=== PATIENT | male | born 1965 | race Caucasian/White ===

== ENCOUNTER 2025-01-19 14:14 | Inpatient (IN) | payer OTHER, SELFPAY ==
[2025-01-19] VITALS (12 sets, daily range): BP systolic 97–142; BP diastolic 63–101; BMI 30.5
[2025-01-19 10:14] LABS: Hematocrit 40.5 % (39.0-52.0); Hemoglobin 13.3 g/dL (13.0-18.0); Mean Corp Hgb Conc. 32.8 g/dL (33.0-37.0); Mean Corpuscular Volume 87.5 fL (80.0-94.0); Nucleated Red Blood Cells % 0 % (-); Platelet Count 296 10^3/uL (130-400); Red Cell Dist. Width 15.3 % (11.5-14.5)
[2025-01-19 10:36] LABS: ALT (SGPT) 85 U/L (0-50); AST (SGOT) 37 U/L (17-59); Albumin 3.7 g/dl (3.5-5.0); Alkaline Phosphatase 107 U/L (38-126); Blood Urea Nitrogen 19 mg/dl (9-20); Calcium 9.1 mg/dl (8.4-10.2); Carbon Dioxide 26 mmol/L (22-30); Chloride 103 mmol/L (98-107); Glucose 106 mg/dl (70-99); Potassium 4.5 mmol/L (3.5-5.1); Sodium 134 mmol/L (135-145); Total Protein 7.1 g/dl (6.3-8.2); eGFR > 60.00
[2025-01-19 10:41] LABS: Troponin I 0.037 ng/ml
--- NOTE | 2025-01-19 12:14 | ED.GENMED ---
History of Present Illness
General
Chief Complaint: Breathing Problem
Time Seen by Provider: 01/19/25 10:50
History of Present Illness
History of Present Illness:
59-year-old male without significant past medical history presenting for dyspnea on exertion. Patient reports symptom essentially for the past month, which seem to be worsening. Also reports orthopnea. Notes dyspnea with very short distances of
walking. Denies any prior history of cardiac disease. Does feel like his neck has been bulging. Denies any lower extremity swelling. Denies any associated chest pain. Denies cough or fever. Denies abdominal pain. Denies additional acute
medical complaints
Phy Exam
Physical Exam
Physical Exam:
General: Well-appearing, no clinical signs of dehydration, nontoxic and in no acute distress
HEENT: protecting airway
Neck: appears supple
CV: Tachycardic, regular rhythm
Resp: No accessory muscle use, no increased work of breathing, mild crackles at the bases
Abd: Soft and non-distended, no tenderness to palpation
Extremities: No deformities, no swelling
Neuro: alert, no focal neurologic deficit
: deferred
Rectal: deferred
Psych: Normal affect
Skin: Intact
Scores
Heart Failure Risk
Heart Failure Risk Score: Yes
History of Stroke or TIA: No
History of intubation for respiratory distress: No
Heart rate on ED arrival >/= 110: Yes
SaO2 <90% on arrival on room air: No
HR >/=110 during 3min walk test (or too ill to perform test): Yes
ECG has acute ischemic changes: Yes
Urea >/=12mmol/L (BUN 33.6mg/dL): No
Serum CO2>/=35mmol/L: No
Troponin I or T elevated to MA Level (0.4mg/dL): No
NT-proBNP >/=5,000ng/L (5,000pg/ml): Yes
HF Risk Score: 5
Admission Status: VERY HIGH RISK 39.8% Consider admission to hospital
Sepsis
Sepsis Screening
Sepsis Assessment: Sepsis Ruled Out
Sepsis Screen
Sepsis Screen: Sepsis Ruled Out
Date: 01/19/25
Time: 14:30
Course
Orders/Labs/Results
Orders:
Orders
01/19/25 09:45
Electrocardiogram (*1) Urgent
Reason for Study: Shortness of Breath
EKG- Treatment ONCE
01/19/25 10:05
Complete Blood Count/With Diff Urgent
Comprehensive Metabolic Panel Urgent
Pro-BNP [NT-proBNP] Urgent
Troponin I Urgent
01/19/25 11:39
CR Chest - 2 Views Urgent
Comment:
Reason For Exam: SOB, suspect CHF
01/19/25 12:23
EKG- Treatment ONCE
01/19/25 12:40
Troponin I Urgent
01/19/25 13:00
Electrocardiogram (*1) Urgent
Reason for Study: Shortness of Breath
01/19/25 13:37
Furosemide [Lasix] 40 mg IV NOW STA
01/19/25 14:05
Admit/Transfer Patient As Directed
Co-Sign Provider:
Level of Care: Inpatient admission
Assign to:: Telemetry
Physician / Group: leticia
Diagnosis: CHF
Reason for Telemetry: Acute Heart Failure
Date to Stop Telemetry: 01/22/25
Time to Stop Telemetry: 11:00
Reason for Hospitalization: CHF
Expected length of stay greater than two midnights?: Yes
ELOS- Estimated Length of Stay in days: 3
I certify the patient meets the requirements for IP care: Yes
PRN Pain Medication Management As Directed
May give lesser potent ordered pain med per pt: Yes
preference::
Protocol:: Medication orders for pain may be administered in a
manner that supports deferring to patient preference
when the pt is:
- Requesting an ordered lesser potent pain medication.
Least to most potent pain medications are defined
as: acetaminophen < NSAID < tramadol < opioids
(morphine, oxycodone, hydromorphone).
- Requesting a lesser dose of the same medication IF
ORDERED.
- Requesting a less intrusive route of administration
if both routes are prescribed by the provider (PO <
IV).
01/19/25 14:06
Code Status As Directed
Resuscitation Status: Full Code
01/22/25 11:00
DC Protocol for Telemetry ONCE
Abnormal Lab Results
01/19/25 01/19/25
10:05 12:40
RBC 4.63 L 10^6/uL
(4.70-6.10)
MCHC 32.8 L g/dL
(33.0-37.0)
RDW 15.3 H %
(11.5-14.5)
Absolute Neuts (auto) 7.6 H 10^3/uL
(1.4-6.5)
Neutrophils % 78.9 H %
(42.2-75.2)
Lymphocytes % 12.3 L %
(20.5-51.1)
Sodium 134 L mmol/L
(135-145)
Glucose 106 H mg/dl
(70-99)
Total Bilirubin 2.0 H mg/dl
(0.2-1.3)
ALT 85 H U/L
(0-50)
Troponin I 0.037 H* ng/ml 0.036 H* ng/ml
01/19/25 10:05
01/19/25 10:05
Vital Signs
Initial and Last Documented VS:
Initial Vital Signs
Temp Pulse Resp BP Pulse Ox
97.5 F 111 22 132/99 100
01/19/25 09:43 01/19/25 09:43 01/19/25 09:43 01/19/25 09:43 01/19/25 09:43
Last Documented Vital Signs
Temp Pulse Resp BP Pulse Ox
97.6 F 103 24 131/85 99
01/19/25 10:54 01/19/25 14:15 01/19/25 11:45 01/19/25 14:15 01/19/25 12:19
MDM/Problems Addressed
MDM/Problems Addressed:
59-year-old male without significant past medical history presenting for progressive dyspnea on exertion. Vital signs on arrival significant for tachycardia.
On exam patient is resting comfortably, no acute respiratory distress. However symptoms clinically appear most consistent with congestive heart failure given progressive dyspnea on exertion and orthopnea with JVD. EKG obtained, does show diffuse T
wave inversion, which is changed from prior. No present chest pain with lower suspicion for ACS. Labs obtained prior to my assessment. Mild elevation of troponin, BNP is 10,000. Again clinical concern for CHF. Plan for chest x-ray imaging.
13:30 -chest x-ray shows evidence of pulmonary edema and increased cardiac silhouette. Continued concern for CHF, new onset. Will start Lasix and plan for admission with cardiac consultation
*Pulse Oximetry
SaO2: 99
Oxygen Mode of Delivery: Room air
Patient hypoxic: no
*EKG
Interpreted by ED Provider?: Yes
EKG Intrepretation Date: 01/19/25
EKG Intrepretation Time: 12:17
Interpretation: abnormal
Comparison EKG: changes noted (11/30/17)
Heart Rate: 106
Rate: tachycardiac
Rhythm: sinus
Interval: normal interval
QRS Pattern: left vent hypertrophy
Ischemia: T-wave inversion (laterally)
*Critical Care Note
Total Time (30-74mins, 75-104mins- exclusive of procedures): Not Applicable
ED Attending Note
-
Portions of this chart may have been created with voice recognition software.� Occasional wrong word or��sound alike� substitutions may have occurred due to the inherent limitations of voice recognition software.
Discharge Plan
Departure
Patient Disposition: Admit
Date of Disposition: 01/19/25
Time of Disposition: 13:47
Presentation/result/management discussed w/ accepting MD/DO: Hospitalist
Patient with high blood pressure during this ER visit?: No
Condition: Fair
Discharge Problem:
Dyspnea on exertion, New onset of congestive heart failure
Interventions
Interventions:
*Risk Screen - Suicide Last Done: 01/19/25 09:43
*General Assessment Last Done: 01/19/25 10:54
*Neglect/Abuse Screening Last Done: 01/19/25 10:54
*ED- Fall Risk Assessment Last Done: 01/19/25 10:54
*ED COVID-19 Vaccine History Last Done: 01/19/25 10:54
*ED Influenza Vaccine History Last Done: 01/19/25 10:54
ED- Cardiac Assessment Last Done: 01/19/25 10:54
ED- Pulmonary Assessment Last Done: 01/19/25 10:54
[2025-01-19 13:22] LABS: Troponin I 0.036 ng/ml
--- NOTE | 2025-01-19 13:53 | HPS.HSE ---
Family Physician
-
Family Physician: * NONE
Chief Complaint
-
sob
History of Present Illness
59-year-old male without significant past medical history presenting for dyspnea on exertion for one month, which progressively got worse. patient stated abdominal tightness with exertion. denied chest pain. patient complained of orthopnea. denied
cough,congestion, fever, chills, LIU, dizzy or syncope. denied n,v,d. denied dysuria or hematuria. patient denied LE edema or weight gain.
Concern for CHF. Patient received a dose of diuretics. Admitting for further management
Medical History
Past Medical History
Past Medical History: Reports None
Past Surgical History: Reports Other
Additional Past Surgical History:
Right inguinal hernia surgery, open repair incarcerated umbilical hernia
Social History
Tobacco: Non-smoker
Alcohol: Occasional (Last drink was 4 weeks ago)
Drug: None
Living: With Family
Family History
Family History: Not pertinent
Allergies / Home Medications
Allergies reflects when Allergies were last updated in [employer].
Home Medications with original date entered in [employer]
Allergy/Medication List:
Allergies
Allergy/AdvReac Type Severity Reaction Status Date / Time
Shellfish Allergy Swelling Uncoded 01/19/25 09:45
Home Medications
No Meds [No Current Medications] 01/19/25
Review of Systems
-
Constitutional: Reports No Symptoms
EENT: Reports No Symptoms
Respiratory: Reports Trouble Breathing
Cardiac: Reports No Symptoms
Abdomen/GI: Reports No Symptoms
: Reports No Symptoms
Musculoskeletal: Reports No Symptoms
Skin: Reports No Symptoms
Neurological: Reports No Symptoms
Endocrine: Reports No Symptoms
Hematologic/Lymphatic: Reports No Symptoms
Psych: Reports No Symptoms
Physical Exam
Vital Signs
Vital Signs
Temp Pulse Resp BP Pulse Ox
97.6 F 105 24 131/94 99
01/19/25 10:54 01/19/25 11:45 01/19/25 11:45 01/19/25 11:00 01/19/25 12:19
Physical Exam
General: Well Developed, Well Nourished and No Apparent Distress
HEENT: NormoCephalic, Moist mucous membranes and Atraumatic
Respiratory: Clear
Cardiac: S1/S2 and Regular Rhythm; No Murmur or Rub
GI: Soft, Non Tender, Non Distended and Normal Bowel Sounds; No Organomegaly
Rectal: Deferred by Provider
Musculoskeletal: No Clubbing, No Cyanosis and Edema, Left Lower Extremity
Skin: No Rash
Neuro: AO x 3 and Nonfocal/grossly intact
Psych: Calm
Laboratory Results
-
01/19/25 10:05
01/19/25 10:05
Laboratory Results
Total Bilirubin 2.0 mg/dl (0.2-1.3) H 01/19/25 10:05
AST 37 U/L (17-59) 01/19/25 10:05
ALT 85 U/L (0-50) H 01/19/25 10:05
Alkaline Phosphatase 107 U/L (38-126) 01/19/25 10:05
Troponin I 0.036 ng/ml H* 01/19/25 12:40
Data Reviewed
-
Diagnostic Radiology: Report Reviewed by me
Lab Data: Labs Reviewed by me
Impression/Plan
-
# Dyspneic exertion/orthopnea concern for new onset CHF
- EKG with diffuse T wave inversion
- BNP 10, 000
- Chest x-ray with Mild cardiomegaly with slightly increased pulmonary vascularity suggesting mild CHF.
- IV diuretics continued
- Strict SHANNEN, daily weight, fluid restriction
- Obtain echocardiogram
- Cardiology consulted
# Alcohol abuse
- 6 beers per night, his last drink was 4 weeks ago
# Troponin elevation suspect demand ischemia secondary to CF exacerbation
- Trope 0.036
- Continue to trend Trope
- Patient denies chest pain
# DVT prophylaxis
- Lovenox subcu
# CODE STATUS
- Full code
[2025-01-19] MEDS: LASIX 40 MG IV ×2 (14:15→21:03)
--- NOTE | 2025-01-19 14:27 | W.PN.UPDATE ---
Update Note
Progress Note Update
Patient seen in conjunction with the nurse practitioner. I agree with the findings and physical. I concur with assessment and plan unless otherwise stated.
Briefly, 59-year-old without known past medical history who presents to the emergency department with multiple complaints including shortness of breath. Patient reports that for about 4 weeks has been having dyspnea on exertion with walking up a
flight of stairs or about [address] He also reports orthopnea whereby he wakes up 5 minutes after going to bed with acute shortness of breath. He reports that he does feel abdominal fullness with any degree of activity. He denies having any
chest pain or chest pressure. He has not had any recent respiratory symptoms such as cough, runny nose, postnasal drip or sinus congestion. Denies having any fevers or chills. He denies any previous history of CAD, diabetes, hypertension. Denies
any prior history of malignancy. He denies any exposure to radiation. He has no contributing family history. He denies any prior history of leg swelling and he has not noticed any significant wrist swelling. Patient reports that longstanding
beer drinking which he stopped about 4 weeks ago when he started getting short of breath.
In the Emergency Department was afebrile, blood pressure was 131/94 with a pulse rate of 95 and was satting 99% on room air. ECG shows a sinus tachycardia at a rate of 103 with left atrial enlargement but otherwise unremarkable. Chest x-ray with
cardiomegaly and pulmonary edema that was slight. CBC was complete unremarkable stable electrolytes were normal. BUN/creatinine were normal. Troponin was slightly elevated at 0.036, BNP was 1000.
Plan
New onset CHF�patient with classic symptoms of CHF as well as elevated BNP and pulmonary edema on x-ray consistent. His exam shows minimal peripheral edema, no JVD and mild crackles. He is not currently on supplemental oxygen.
� Admit to telemetry
� Start Lasix 40 mg IV twice daily
� Start fluid and salt restrictions
� Check TSH, trend troponins, echo in a.m.
� Patient has no obvious cause for his CHF at this time, will need ischemic evaluation by cardiology
� Daily weights, strict ins and outs
� Initiate GDMT once echocardiogram is obtained
Elevated troponin�not on ischemic myocardial injury suspected secondary to CHF, possibly with pericarditis, but cannot rule out underlying ischemic heart disease
� Will trend troponin as above
� Lipid panel, A1c
� Echo as above
� Cardiology consult
DVT prophylaxis�Lovenox subcu
CODE STATUS�full code
--- NOTE | 2025-01-19 15:01 | CM ---
Chart reviewed and spoke with patient at ED bedside
He lives in [place] with mother and sister
Independent with ADLs
working maritime officer as milling machinist
no PCP
CM encouraged to have him call his HP to find one
Provided info on [facility] care
He has been calling local PCP offices in [place]
[facility] in [place]
no hx VN and SNF
DCP is to go home with no needs
Family can pick him up at [place]
CM will continue to follow up for dcp needs
--- NOTE | 2025-01-19 15:17 | EDRN ---
this RN called the receiving unit and notified them that paper report was going to be tubed up
[2025-01-19 15:58] LABS: HDL Cholesterol 23 mg/dl; LDL Cholesterol, Calculated 112 mg/dl; Very Low Density Lipoprotein 13 mg/dl (0-30)
--- NOTE | 2025-01-19 16:55 | PTCARENOTE ---
Pt reports drinking 4-5 beers nightly, Last drink was 3 weeks ago per pt. Made Dr. Delarosa aware and he indicated that we can cancel the MSAS that it does not need to be completed.
--- NOTE | 2025-01-19 17:14 | CON.CAR ---
Addendum entered and electronically signed by Wayne Kaye MD 01/19/25 18:37:
I reviewed and agree with the note by ANTHONY and it accurately reflects our care.
I saw and evaluated the patient, and I provided the substantive portion of the medical decision making. My assessment and plan is below:
59-year-old man with daily alcohol use (5�6 beers) and no known past medical history though does not have a PCP and has not been to the doctor in years. He presents with shortness of breath and weight gain for the past month. He denies chest pain
and palpitations. He is a never smoker. No significant family history of coronary artery disease.
Physical exam: RRR, systolic murmur, clear lungs, no lower extremity edema
Labs notable for proBNP 10,000, troponin 0.037 -> 0.036, T. bili 2.0, ALT 85, LDL 112
CXR with cardiomegaly and mild CHF
TTE: LVEF 15-20%, global hypokinesis, moderate to severe MR, moderate to severe TR, PASP 69 mmHg
Heart failure with severely reduced ejection fraction: Acute. New diagnosis this admission. Suspect either due to daily alcohol use or coronary artery disease. He will need RHC/LHC this admission (likely Wednesday). Start GDMT with low-dose
Entresto, low-dose metoprolol and SGLT2 inhibitor. Check pricing with case management. Add MRA if he tolerates other meds. Twice daily IV diuresis.
Abnormal troponin: Suspect due to nonischemic myocardial injury in the setting of acute heart failure. No chest pain. Troponin peaked at 0.037. Stop trending.
Original Note:
Consultation
Consultation Request
Date/Time Consultation Requested: 01/19/2025 15:30
Date/Time Consultation Performed: 01/19/2025 17:15
Requesting Provider: ANTHONY Stephens
Performing Provider: ANTHONY Padilla for Dr. Kaye
Reason for Consultation: Acute heart failure
Medical History
-
Chief Complaint: Shortness of breath
History of Present Illness:
René Rutherford is a 59-year-old male with alcohol abuse who presented to the emergency department with a chief complaint of shortness of breath. Shortness of breath started 1 month ago. It has been consistently worsening. He is not having
orthopnea but endorses PND. He now has dyspnea while walking. He is not having any chest pain. He does not regularly see healthcare providers and does not have a PCP so he has not been evaluated for his shortness of breath. He presented to the
emergency department was found to have a proBNP of 10K, abnormal troponin, and volume overload on CXR. Cardiology was consulted for heart failure management. He is not having any chest pain. He is not short of breath at rest.
Past Medical History
Past Medical History: Psychiatric (EtOH abuse)
Past Surgical History: Other (Hernia repair)
Social History
Tobacco: Non-Smoker
Alcohol: Daily (5-6 beers every evening for 15 years)
Drug: None
Living: With Family
Employment: Employed (Disability Case Manager)
Family History
Family History: Reviewed & Not Pertinent (Denies premature CAD and SCD.)
Allergies / Home Medications
Allergy/AdvReac Type Severity Reaction Status Date / Time
shellfish derived Allergy lip Verified 01/19/25 15:59
swelling,
throat
closes
�Medication �Instructions �Recorded �Confirmed �Type
No Meds [No Current Medications] 01/19/25 01/19/25 History
Review of Systems
-
History Source: Patient
All other systems: Negative unless noted
Constitutional: Fatigue and Sleep Disturbance
EENT: No Symptoms
Respiratory: Trouble Breathing
Cardiac: No Symptoms
Abdomen/GI: No Symptoms
: No Symptoms
Musculoskeletal: No Symptoms
Skin: No Symptoms
Neurological: No Symptoms
Endocrine: No Symptoms
Hematologic/Lymphatic: No Symptoms
Physical Exam
Vital Signs
Temp Pulse Resp BP Pulse Ox
98.4 F 113 18 142/97 99
01/19/25 16:03 01/19/25 16:03 01/19/25 16:03 01/19/25 16:03 01/19/25 16:03
Lab Results
01/19/25 10:05
01/19/25 10:05
Troponin I 0.036 ng/ml H* 01/19/25 12:40
[id number] Pept 20304 pg/ml 01/19/25 10:05
Physical Exam
General: Well Developed, Well Nourished, No Apparent Distress and Comfortable
HEENT: Normocephalic, Anicteric and Moist Mucous Membranes
Respiratory: Crackles and Non Labored Respirations
Cardiac: S1/S2, Regular Rhythm and Murmur; Negative Peripheral Edema
Breast: Deferred by me
GI: Soft, Non Tender, Non Distended and Normal Bowel Sounds
Rectal: Deferred by Provider
Genito-urinary: No Costovertebral Tender
Musculoskeletal: No Clubbing and No Cyanosis
Skin: Warm and Dry
Neuro: AO x 3
Hematologic/Lymphatic: No Lymphadenopathy
Psych: Calm
Impression / Plan
-
I/P: 59M with prior alcohol abuse, does not regularly seek medical care presents with shortness of breath.
Outpatient feed handler: None
Heart failure, type unknown, acute - NEW
- Volume overloaded on exam with associated orthopnea
- Diuresis with furosemide 40 mg IV twice daily - this requires intensive monitoring
- Case management to [facility]
- Trend daily weight, I/O, BMP with diuresis
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
- Heart failure education
Abnormal troponin, likely nonischemic myocardial injury in the setting of acute heart failure
- Trend troponin to peak
- Chest pain-free
Mixed dyslipidemia, LDL 112
EtOH abuse, consuming 5-6 beers every evening for the past 15 years
Data Reviewed
-
EKG: Report Reviewed by me
Radiology: Report Reviewed by me
Labs: Labs Reviewed by me
Old Records: Reviewed
[2025-01-19 19:00] LABS: Troponin I 0.039 ng/ml
[2025-01-19] MEDS: ENTRESTO 24 MG/26 MG 1 TAB PO (20:08)
[2025-01-20] VITALS (8 sets, daily range): BP systolic 95–117; BP diastolic 64–80; PULSE 92; O2SAT 98–99; BMI 28.2
[2025-01-20 00:40] LABS: Troponin I 0.047 ng/ml
[2025-01-20 06:07] LABS: Hematocrit 38.3 % (39.0-52.0); Hemoglobin 13.1 g/dL (13.0-18.0); Mean Corp Hgb Conc. 34.2 g/dL (33.0-37.0); Mean Corpuscular Volume 85.9 fL (80.0-94.0); Platelet Count 275 10^3/uL (130-400); Red Cell Dist. Width 15.2 % (11.5-14.5)
[2025-01-20 06:40] LABS: ALT (SGPT) 71 U/L (0-50); AST (SGOT) 32 U/L (17-59); Albumin 3.1 g/dl (3.5-5.0); Alkaline Phosphatase 92 U/L (38-126); Blood Urea Nitrogen 18 mg/dl (9-20); Calcium 8.4 mg/dl (8.4-10.2); Carbon Dioxide 28 mmol/L (22-30); Chloride 101 mmol/L (98-107); Estimated Creatinine Clearance 95 ml/min; Glucose 82 mg/dl (70-99); HDL Cholesterol 20 mg/dl; LDL Cholesterol, Calculated 108 mg/dl; Magnesium 1.8 mg/dl (1.6-2.3); Potassium 3.6 mmol/L (3.5-5.1); Sodium 134 mmol/L (135-145); Total Protein 6.3 g/dl (6.3-8.2); Very Low Density Lipoprotein 11 mg/dl (0-30); eGFR > 60.00
[2025-01-20 06:45] LABS: Troponin I 0.044 ng/ml
--- NOTE | 2025-01-20 09:02 | W.PN.HOSP.TC ---
Today's Communication/Plan
-
f/w cardiology recommendations
Assessment / Plan
Assessment / Plan
Physical Exam
General: Well Developed, Well Nourished and No Apparent Distress
HEENT: NormoCephalic, Moist mucous membranes and Atraumatic
Respiratory: Clear
Cardiac: S1/S2 and Regular Rhythm; No Murmur or Rub
GI: Soft, Non Tender, Non Distended and Normal Bowel Sounds; No Organomegaly
Rectal: Deferred by Provider
Musculoskeletal: No Clubbing, No Cyanosis and Edema, Left Lower Extremity
Skin: No Rash
Neuro: AO x 3 and Nonfocal/grossly intact
Psych: Calm, flat affect
# Acute new onset HFrEF , unknown duration but likely acute to subacute
He feels better
c/w IV Lasix
LDL 108
GDMT as BP and renal function tolerate
ECHO showed LVEF 15-20%, global hypokinesis, moderate to severe MR, moderate to severe TR, PASP 69 mmHg
R and L heart cath Wednesday
Appreciate cardiology help
# Alcohol abuse
-No signs of DT
AAOX3
No tremor
# nonischemic myocardial injury in the setting of acute heart failure
- Peak Trope 0.047
- Continue to trend Trope
- Patient denies chest pain
# DVT prophylaxis
- Lovenox subcu
# Hyponatremia
No confusion
# CODE STATUS
- Full code
Total time spent to see the patient, examine the patient, review data and lab results, discuss treatment plan with patient, nursing staff around 55 minutes�
Anticipated Discharge: > 48 hours
Subjective/Interval History
-
Date of Service: January 20, 2025
No chest pain
No sob
No fevers
Objective Data
-
Labs:
Laboratory Results
01/20/25
05:46
WBC 8.0
Hgb 13.1
Hct 38.3 L
Plt Count 275
Sodium 134 L
Potassium 3.6
Chloride 101
Carbon Dioxide 28
BUN 18
Creatinine 0.8
Glucose 82
Calcium 8.4
Total Bilirubin 2.3 H
AST 32
ALT 71 H
Alkaline Phosphatase 92
Vital Signs:
Vital Signs
Temp Pulse Resp BP Pulse Ox
98.5 F 86 18 105/71 99
01/20/25 07:47 01/20/25 07:47 01/20/25 07:47 01/20/25 07:47 01/20/25 07:47
I&O
01/19/25 01/20/25 01/21/25
06:59 06:59 06:59
Intake Total 60 / 60
Output Total 3650 / 365
Balance -3590 / -3590
[2025-01-20] MEDS: TOPROL XL 25 MG PO (09:06)
[2025-01-20] MEDS: LASIX 40 MG IV ×2 (09:06→15:10)
[2025-01-20] MEDS: FARXIGA 10 MG PO (09:06)
[2025-01-20] MEDS: ENTRESTO 24 MG/26 MG 1 TAB PO ×2 (09:06→20:39)
--- NOTE | 2025-01-20 09:07 | W.PN.CD ---
Addendum entered and electronically signed by Alok Worley MD 01/20/25 12:23:
I saw and evaluated the patient, and I provided the substantive portion of the medical decision making.
I reviewed and agree with the note by Ms Oakes and it accurately reflects our care.
I personally performed the medical decision making of the this encounter and my assessment and plan is below:
new HFrEF
- IV diuresis
- GDMT as tolerate
- NPO after midwednesday for right and left cath
Original Note:
Today's Communication / Plan
-
-continue IV diuresis. Will give some K+ today.
-continue GDMT as tolerated
-R and L heart cath Wednesday
Impression / Plan
-
59-year-old man with daily alcohol use (5�6 beers) and no known past medical history though does not have a PCP and has not been to the doctor in years. He presents with shortness of breath and weight gain for the past month. He denies chest pain
and palpitations.
Acute HFrEF/CM (type unknown):
-CXR with cardiomegaly and mild CHF
-proBNP 10,000
-TTE: LVEF 15-20%, global hypokinesis, moderate to severe MR, moderate to severe TR, PASP 69 mmHg
-seems to be diuresing well. Still with mild rales and mild BLE edema. Continue IV Lasix, which requires intensive monitoring -Trend daily weight, I/O, BMP with diuresis. Will give some potassium today.
-Case management to Jose Angel Nolasco- he was started on these medications, as well as Toprol XL. Continue these meds and monitor. Assess for MRA next, but BP is not robust, so holding off for now.
-Heart failure education
-suspect CM either due to daily alcohol use or coronary artery disease- we discussed this. Plan is for RHC/LHC Wednesday.
Abnormal troponin, likely nonischemic myocardial injury in the setting of acute heart failure
- 0.047 peak
- Chest pain-free
Mixed dyslipidemia, LDL 112
EtOH abuse, consuming 5-6 beers every evening for the past 15 years- will need ETOH cessation education and assistance prior to d/c
Physical Exam
Vital Signs/Labs
Vital Signs
Temp Pulse Resp BP Pulse Ox
98.5 F 86 18 105/71 99
01/20/25 07:47 01/20/25 07:47 01/20/25 07:47 01/20/25 07:47 01/20/25 07:47
01/19/25 01/20/25 01/21/25
06:59 06:59 06:59
Actual Weight 185 lb 8 oz
01/20/25 05:46
01/20/25 05:46
Magnesium 1.8 mg/dl (1.6-2.3) 01/20/25 05:46
Triglycerides 59 mg/dl (10-149) 01/20/25 05:46
LDL Cholesterol, Calc 108 mg/dl 01/20/25 05:46
VLDL Cholesterol, Calc 11 mg/dl (0-30) 01/20/25 05:46
HDL Cholesterol 20 mg/dl 01/20/25 05:46
01/19/25
10:05
Uhp-M-Erfdyihsgfh Pept [id number]
LAB Results
01/19/25 01/19/25 01/19/25
10:05 12:40 17:49
Troponin I 0.037 H* 0.036 H* 0.039 H*
01/19/25 01/19/25 01/20/25
21:31 23:54 00:00
Troponin I Cancelled 0.047 H* Cancelled
01/20/25
05:46
Troponin I 0.044 H*
Physical Exam
Constitutional: No acute distress
EENT: Anicteric
Cardiovascular: Rhythm & rate is regular and Pedal edema present (mild BLE edema)
Respiratory: Respiratory effort normal and Crackles Present (b/l lower lobe rales, mild)
Neuro/Psych: AO x 3
Data Reviewed
-
Date of Service: January 20, 2025
EKG: Other (telemetry stable in SR)
Echo: Report Reviewed by me (as noted in chart)
Labs: Labs Reviewed by me
[2025-01-20] MEDS: KCL 20 MEQ PO (09:13)
[2025-01-20 09:42] LABS: Glycohemoglobin (HgbA1c) 6.3 % (4.0-5.9)
--- NOTE | 2025-01-20 12:33 | CM ---
Addendum entered by Chuyita Haines 01/20/25 13:16:
Drug pricing
The patient's insurance will not approve prescriptions for Farxiga or Entresto because they are considered 'plan exclusions'. They stated the following list of meds are acceptable alternatives
Farxiga alternatives
Jardiance
Trulicity
Ozempic
Liraglutide
Entresto alternatives
Irbesartan
Losartan
Olmesartan
Telmisartan
Valsartan
Original Note:
Met with pt bedside. CM Consult for ETOH and DC planning addressed; Pt has declined [facility] and offer of VN for new CHF diagnosis. Talked briefly about medication costs and that CM will investigate prices for Farxiga 10mg daily and Entresto 24-26 mg
BID per physician consult.
Will follow for DC needs
Plan: Home no needs.
[2025-01-21 03:19] VITALS: BP 95/59
[2025-01-21 05:56] VITALS: BMI 26.7
[2025-01-21 07:05] VITALS: BP 105/68
[2025-01-21 07:52] LABS: Blood Urea Nitrogen 18 mg/dl (9-20); Calcium 8.7 mg/dl (8.4-10.2); Carbon Dioxide 27 mmol/L (22-30); Chloride 102 mmol/L (98-107); Estimated Creatinine Clearance 95 ml/min; Glucose 73 mg/dl (70-99); Potassium 3.8 mmol/L (3.5-5.1); Sodium 136 mmol/L (135-145); eGFR > 60.00
--- NOTE | 2025-01-21 09:23 | W.PN.HOSP.TC ---
Today's Communication/Plan
-
.
Assessment / Plan
Assessment / Plan
Physical Exam
General: Well Developed, Well Nourished and No Apparent Distress
HEENT: NormoCephalic, Moist mucous membranes and Atraumatic
Respiratory: Clear
Cardiac: S1/S2 and Regular Rhythm; No Murmur or Rub
GI: Soft, Non Tender, Non Distended and Normal Bowel Sounds; No Organomegaly
Rectal: Deferred by Provider
Musculoskeletal: No Clubbing, No Cyanosis and Edema, Left Lower Extremity
Skin: No Rash
Neuro: AO x 3 and Nonfocal/grossly intact
Psych: Calm, flat affect
# Acute new onset HFrEF , unknown duration but likely acute to subacute
He feels better
c/w IV Lasix
LDL 108
GDMT as BP and renal function tolerate
Low BP, holding Entresto today to advance Lasix and BB
Will add prophylactic KCl
ECHO showed LVEF 15-20%, global hypokinesis, moderate to severe MR, moderate to severe TR, PASP 69 mmHg
R and L heart cath Monday 01/22
Appreciate cardiology help
# Alcohol abuse
-No signs of DT
AAOX3
No tremor
# nonischemic myocardial injury in the setting of acute heart failure
- Peak Trope 0.047
- Continue to trend Trope
- Patient denies chest pain
# DVT prophylaxis
- Lovenox subcu
# Hyponatremia
No confusion
# CODE STATUS
- Full code
Total time spent to see the patient, examine the patient, review data and lab results, discuss treatment plan with patient, nursing staff around 55 minutes�
Anticipated Discharge: > 48 hours
Subjective/Interval History
-
Date of Service: January 21, 2025
No chest pain
No sob
No fevers
Objective Data
-
Labs:
Laboratory Results
01/21/25
05:59
Sodium 136
Potassium 3.8
Chloride 102
Carbon Dioxide 27
BUN 18
Creatinine 0.8
Glucose 73
Calcium 8.7
Vital Signs:
Vital Signs
Temp Pulse Resp BP Pulse Ox
97.6 F 87 16 105/68 93
01/21/25 07:05 01/21/25 07:05 01/21/25 07:05 01/21/25 07:05 01/21/25 07:05
I&O
01/20/25 01/21/25 01/22/25
06:59 06:59 06:59
Intake Total 60 / 60 1920 / 1920
Output Total 3650 / 3650 5800 / 5800
Balance -3590 / -3590 -3880 / -3880
[2025-01-21] MEDS: FARXIGA 10 MG PO (09:38)
[2025-01-21] MEDS: LASIX 40 MG IV ×2 (09:38→17:04)
[2025-01-21] MEDS: TOPROL XL 25 MG PO (09:38)
[2025-01-21] MEDS: ENTRESTO 24 MG/26 MG PO (09:39)
[2025-01-21] MEDS: KCL 20 MEQ PO (10:15)
[2025-01-21] MEDS: ENTRESTO 24 MG/26 MG 1 TAB PO ×2 (10:17→19:59)
[2025-01-21 11:10] VITALS: BP 102/67
--- NOTE | 2025-01-21 13:42 | W.PN.CD ---
Today's Communication / Plan
-
Continue IV Lasix
N.p.o. for cath tomorrow
Impression / Plan
-
59-year-old man with daily alcohol use (5�6 beers) and no known past medical history though does not have a PCP and has not been to the doctor in years. He presents with shortness of breath and weight gain for the past month. He denies chest pain
and palpitations.
Acute HFrEF/CM (type unknown):
-CXR with cardiomegaly and mild CHF
-proBNP 10,000
-TTE: LVEF 15-20%, global hypokinesis, moderate to severe MR, moderate to severe TR, PASP 69 mmHg
- continue IV Lasix
-Case management to Jose Angel Nolasco- he was started on these medications, as well as Toprol XL. Continue these meds and monitor. Assess for MRA next, but BP is not robust, so holding off for now.
-Heart failure education
-suspect CM either due to daily alcohol use or coronary artery disease- we discussed this. Plan is for RHC/C Wednesday.
Abnormal troponin, likely nonischemic myocardial injury in the setting of acute heart failure
- 0.047 peak
- Chest pain-free
Mixed dyslipidemia, LDL 112
EtOH abuse, consuming 5-6 beers every evening for the past 15 years- will need ETOH cessation education and assistance prior to d/c
Subjective: Feeling better
Physical Exam
Vital Signs/Labs
Vital Signs
Temp Pulse Resp BP Pulse Ox
97.6 F 89 16 102/67 98
01/21/25 11:10 01/21/25 11:10 01/21/25 11:10 01/21/25 11:10 01/21/25 11:10
01/20/25 01/21/25 01/22/25
06:59 06:59 06:59
Actual Weight 185 lb 8 oz 175 lb 5 oz
01/20/25 05:46
01/21/25 05:59
Magnesium 1.8 mg/dl (1.6-2.3) 01/20/25 05:46
Triglycerides 59 mg/dl (10-149) 01/20/25 05:46
LDL Cholesterol, Calc 108 mg/dl 01/20/25 05:46
VLDL Cholesterol, Calc 11 mg/dl (0-30) 01/20/25 05:46
HDL Cholesterol 20 mg/dl 01/20/25 05:46
01/19/25
10:05
Lqg-R-Rpqpwbqvpem Pept [id number]
LAB Results
01/19/25 01/19/25 01/19/25
10:05 12:40 17:49
Troponin I 0.037 H* 0.036 H* 0.039 H*
01/19/25 01/19/25 01/20/25
21:31 23:54 00:00
Troponin I Cancelled 0.047 H* Cancelled
01/20/25
05:46
Troponin I 0.044 H*
Physical Exam
Constitutional: No acute distress and Comfortable
Cardiovascular: Rhythm & rate is regular and Pedal edema is absent
Respiratory: Respiratory effort normal and Crackles Present (Faint)
GI: Soft
Neuro/Psych: AO x 3
Data Reviewed
-
Date of Service: January 21, 2025
EKG: Tracing Personally Visualized and interpreted
Echo: Report Reviewed by me
Labs: Labs Reviewed by me
[2025-01-21 15:35] VITALS: BP 96/64
[2025-01-21 19:59] VITALS: BP 100/62
[2025-01-21 23:28] VITALS: BP 105/63
[2025-01-22] VITALS (12 sets, daily range): BP systolic 84–98; BP diastolic 56–67; BMI 26.0
[2025-01-22] MEDS: LOW STRENGTH ASPIRIN 324 MG PO (06:54)
[2025-01-22] MEDS: LASIX 40 MG IV (08:46)
[2025-01-22] MEDS: TOPROL XL 25 MG PO (08:47)
[2025-01-22] MEDS: VITAMIN B1 100 MG PO (08:47)
[2025-01-22] MEDS: KCL 20 MEQ PO (08:47)
[2025-01-22] MEDS: ENTRESTO 24 MG/26 MG 1 TAB PO (08:48)
[2025-01-22] MEDS: FARXIGA 10 MG PO (08:48)
[2025-01-22 08:54] LABS: Hematocrit 47.9 % (39.0-52.0); Hemoglobin 15.7 g/dL (13.0-18.0); Mean Corp Hgb Conc. 32.8 g/dL (33.0-37.0); Mean Corpuscular Volume 87.1 fL (80.0-94.0); Platelet Count 381 10^3/uL (130-400); Red Cell Dist. Width 14.9 % (11.5-14.5)
[2025-01-22 09:26] LABS: Blood Urea Nitrogen 24 mg/dl (9-20); Calcium 8.8 mg/dl (8.4-10.2); Carbon Dioxide 26 mmol/L (22-30); Chloride 101 mmol/L (98-107); Estimated Creatinine Clearance 95 ml/min; Glucose 85 mg/dl (70-99); Potassium 4.0 mmol/L (3.5-5.1); Sodium 136 mmol/L (135-145); eGFR > 60.00
--- NOTE | 2025-01-22 11:14 | CM ---
Patient seen bedside
Scheduled for cardiac cath today.
Plan: home with spouse, no needs when medically stable.
--- NOTE | 2025-01-22 11:15 | W.PN.CD ---
Today's Communication / Plan
-
R/L Cardiac catheterization today.
Further medication adjustments based on those results.
Case management to carrion ARNi/SGLT2i.
We will likely start spironolactone 12.5 mg daily tomorrow and monitor BP.
Impression / Plan
-
Impression/Plan: 59-year-old man with daily alcohol use (5�6 beers), extremely limited medical contact and thus no documented past medical history admitted with new HFrEF.
#Acute HFrEF/CM (type unknown):
-New diagnosis this admission, LVEF 15-20%, global hypokinesis, moderate to severe MR, moderate to severe TR.
-CXR with cardiomegaly and mild CHF; proBNP 10,000.
-R/L cardiac catheterization to clarify filling pressures/coronary anatomy today.
-GDMT as hemodynamics will tolerate:
-Diuretics: Furosemide 40 mg IV BID.
-Beta blockers: Metoprolol succinate 25 mg PO daily.
-ACEI/ARB/ARNi: Sacubitril/valsartan 24/26 mg PO BID. Case management to car[facility]ion.
-MRA: None yet. Start spironolactone 12.5 mg PO daily (tomorrow) and monitor BP.
-SGLT2i: Dapagliflozin 10 mg PO daily. Case management to carrion.
-ICD: Not yet indicated. Re-evaluate LVEF after 12 weeks of GDMT.
#Abnormal troponin
-Likely nonischemic myocardial injury in the setting of acute heart failure.
-Troponin 0.036 --> 0.039 --> 0.047 --> 0.044.
-Chest pain-free.
-Coronary angiography today to clarify coronary anatomy.
#Mixed dyslipidemia
-New diagnosis.
-Total cholesterol = 148, LDL = 112, HDL = 23, Triglycerides = 66.
-Treatment based on presence/absence of ASCVD/CAD. If negative, we will calculate an ASCVD 10 year risk score.
#EtOH abuse
-Chronic, recent absention.
-Consumed 5-6 beers every evening for the past 15 years
-Will need ETOH cessation education and assistance prior to d/c.
Subjective/Interval History:
Feels better.
Weight is down 2 kg from yesterday, nearly 12 kg from admission (77.593 <-- 79.52 <-- 89.414).
DATA:
TTE, 01/19/2025:
SUMMARY
1. Severely dilated left ventricle with severely reduced systolic function and global hypokinesis. LVEF 15-20%.
2. Right ventricle is moderately dilated with reduced systolic function.
3. Biatrial enlargement.
4. Moderate to severe secondary mitral regurgitation.
5. Moderate to severe tricuspid regurgitation with severely elevated PASP (69 mmHg).
6. No prior study available for comparison.
Physical Exam
Vital Signs/Labs
Vital Signs
Temp Pulse Resp BP Pulse Ox
36.5 C 89 16 107/69 95
01/22/25 07:40 01/22/25 08:46 01/22/25 07:40 01/22/25 08:46 01/22/25 07:40
01/20/25 01/21/25 01/22/25
11:59 11:59 11:59
Actual Weight 84.141 kg 79.52 kg 77.593 kg
01/22/25 07:38
01/22/25 07:38
Magnesium 1.8 mg/dl (1.6-2.3) 01/20/25 05:46
Triglycerides 59 mg/dl (10-149) 01/20/25 05:46
LDL Cholesterol, Calc 108 mg/dl 01/20/25 05:46
VLDL Cholesterol, Calc 11 mg/dl (0-30) 01/20/25 05:46
HDL Cholesterol 20 mg/dl 01/20/25 05:46
01/19/25
10:05
Qbc-W-Izakehjmhqi Pept [id number]
LAB Results
01/19/25 01/19/25 01/19/25
12:40 17:49 21:31
Troponin I 0.036 H* 0.039 H* Cancelled
01/19/25 01/20/25 01/20/25
23:54 00:00 05:46
Troponin I 0.047 H* Cancelled 0.044 H*
Physical Exam
Constitutional: No acute distress and Comfortable
EENT: Anicteric and Moist mucous membranes
Cardiovascular: Rhythm & rate is regular, Pedal edema is absent, JVD pressure is normal, Systolic murmur present and S1S2 is normal
Respiratory: Respiratory effort normal, Lungs clear to auscul., Wheeze Absent, Crackles Absent and Rhonchi Absent
GI: Soft, Distention absent, Flat, Non tender and Normal bowel sounds
Neuro/Psych: AO x 3
Data Reviewed
-
Date of Service: January 22, 2025
Medical Decision Making: Reviewed Test Results, Independent Historian Assessment and Test Interpretation
EKG: Tracing Personally Visualized and interpreted and Report Reviewed by me
Echo: Tracing Personally Visualized and interpreted and Report Reviewed by me
X-Ray/CT/US/MRI/NUC/PET: Image Personally Visualized and interpreted and Report Reviewed by me
Labs: Labs Reviewed by me
Old Records: Reviewed
--- NOTE | 2025-01-22 11:39 | W.PN.HOSP.TC ---
Today's Communication/Plan
-
GDMT
Trend cr
cath today
Assessment / Plan
Assessment / Plan
Physical Exam
General: Well Developed, Well Nourished and No Apparent Distress
HEENT: NormoCephalic, Moist mucous membranes and Atraumatic
Respiratory: Clear
Cardiac: S1/S2 and Regular Rhythm; No Murmur or Rub
GI: Soft, Non Tender, Non Distended and Normal Bowel Sounds; No Organomegaly
Rectal: Deferred by Provider
Musculoskeletal: No Clubbing, No Cyanosis and Edema, Left Lower Extremity
Skin: No Rash
Neuro: AO x 3 and Nonfocal/grossly intact
Psych: Calm, flat affect
# Acute new onset HFrEF , unknown duration but likely acute to subacute
c/w IV Lasix. Blood significant weight. Creatinine holding. Requires invasive monitoring. Remains with good urinary output.
LDL 108
GDMT as BP and renal function tolerate
KCL 20 meq
Cont GDMT with farxiga, lasix, entresto, toprol. monitor BP closely. With low EF Bp expected to be on lower side.
ECHO showed LVEF 15-20%, global hypokinesis, moderate to severe MR, moderate to severe TR, PASP 69 mmHg
R and L heart cath Monday 01/22
cardiology following
# Alcohol abuse
-No signs of DT
AAOX3
No tremor
# nonischemic myocardial injury in the setting of acute heart failure
- Peak Trope 0.047
- Continue to trend Trope
- Patient denies chest pain
- plan for cath today
# Hyponatremia
resolved
# DVT prophylaxis - Lovenox subcu
# CODE STATUS
- Full code
Anticipated Discharge: 24 - 48 hours
Subjective/Interval History
-
Date of Service: January 22, 2025
states nervous about cath
feeling better compared to admission
Objective Data
-
Labs:
Laboratory Results
01/22/25
07:38
WBC 7.3
Hgb 15.7
Hct 47.9
Plt Count 381 D
Sodium 136
Potassium 4.0
Chloride 101
Carbon Dioxide 26
BUN 24 H
Creatinine 0.8
Glucose 85
Calcium 8.8
Vital Signs:
Vital Signs
Temp Pulse Resp BP Pulse Ox
97.7 F 89 16 107/69 95
01/22/25 07:40 01/22/25 08:46 01/22/25 07:40 01/22/25 08:46 01/22/25 07:40
I&O
01/21/25 01/22/25 01/23/25
06:59 06:59 06:59
Intake Total 1920 / 1920 600 / 600
Output Total 5800 / 5800 1900 / 1900
Balance -3880 / -3880 -1300 / -1300
--- NOTE | 2025-01-22 12:58 | ITS.CL.CATH ---
[employer] - Catheterization
Cardiac Catheterization
Procedure Report:
CARDIAC CATHETERIZATION REPORT
Date of Procedure: 01/22/2025
Referring: Wayne Kaye M.D.
Indication: New systolic cardiomyopathy, troponin elevation.
PROCEDURE:
1. Right heart catheterization.
2. Coronary angiography.
3. Left heart catheterization.
A total of 7 minutes of procedural/moderate sedation was utilized. An independent medical detail representative was present to assist with and help manage the patient's level of consciousness and physiologic status.
ACCESS:
1. 6 Burkinan right radial artery using a modified Seldinger technique delete the.
2. 5 Burkinan right antecubital vein using a modified Seldinger technique under ultrasound guidance.
CATHETERS:
1. 5 Burkinan balloon.
2. 5 Burkinan JL 3.5.
3. 5 [place]kinan JR4.
HEMODYNAMIC DATA
Weight (kg): 77.6
AO (s/d/x, mmHg): 83/61/70
LV (s/x, mmHg): 84/10
PCWP (a/v/x, mmHg): 15/15/11
PA (s/d/x, mmHg): 35/16/22
RV (s/x, mmHg): 35/5
RA (a/v/x, mmHg): 8/7/5
SVC SvO2 (%): 68.7
IVC SvO2 (%): Not obtained.
RA SvO2 (%): Not obtained.
RV SvO2 (%): Not obtained.
PA SvO2 (%): 69.5
SaO2 (%): 93.2
Hbg (g/dL): 16.2
YUE
CO (L/min): 4.58
CI (L/min/m2): 2.39
Thermodilution
CO (L/min): Not performed.
CI (L/min/m2): Not performed.
TPG (mmHg): 11
PVR (Steele Units): 2.40
SVR (dynes*seconds*cm^-5): 1135
AVO2 Diff (Volume %): 5.22
Cardiac Power Output (altman): 0.71 (MAP * CO)/451 (normal 0.5 - 0.7; 0.4 - 0.6 in the elderly)
Cardiac Power Index (altman/m2): 0.37 (MAP * CI)/451
Ozzie: 3.8 (PAs-PAd)/RA
AV gradient (x, mmHg): None.
AV area (cm2): Normal.
MV gradient (x, mmHg): Not obtained.
MV area (cm2): Not obtained.
LEFT VENTRICULOGRAPHY: Not performed.
AORTOGRAPHY: Not performed.
CORONARY ANGIOGRAPHY
Dominance: Right.
Left Main: Normal size, bifurcating vessel. There is no coronary artery disease.
LAD: Large size vessel giving rise to several small diagonals before giving rise to a large diagonal which supplies the entire distal anterolateral wall. There is no coronary artery disease.
Ramus: Congenitally absent.
Circumflex: Normal size, nondominant vessel giving rise to 3 obtuse marginals. There is no coronary artery disease.
RCA: Large size, dominant vessel with a large posterolateral arcade. There is no coronary artery disease.
INTERVENTIONS
None.
Closure Device: Vascular band for the right radial artery, manual pressure for the right antecubital vein.
Radiation dose (mGy): 346.74
DAP (cm2.Gy): 29.3656
Fluoroscopy time (minutes): 2.7
CONCLUSIONS:
1. Right dominant circulation with no coronary artery disease.
2. Severe systolic dysfunction on echocardiography (LVEF 15-20%).
3. Normal filling pressures (LVEDP = 10 mmHg, PCWP = 11 mmHg at 77.6 kg), likely underfilled for degree of cardiac dysfunction.
4. Mixed cardiac performance indices (cardiac index = 2.39 L/min/m� [normal], AVO2 difference = 5.22 volume% [normal], cardiac power output = 0.71 W [normal], cardiac power index 0.37 w/m� [low]).
RECOMMENDATIONS:
1. Expectant management after cardiac catheterization via right radial/antecubital approach.
2. Limited weight bearing on the right wrist for one week.
3. Hold diuresis. Normal saline 500 mL was given as a bolus in the cardiac [employer] due to relative hypotension.
4. Transition to oral diuretics.
5. GDMT as hemodynamics will tolerate.
6. Reevaluation of systolic function as well as mitral valve regurgitation after 12 weeks of GDMT.
7. If severe mitral regurgitation persists, consider M�CONRADO versus surgical evaluation.
Copy to: Wayne Kaye M.D., Alok Worley M.D.
Luc Sinha DO, FACC, FACP
--- NOTE | 2025-01-22 17:46 | PTCARENOTE ---
Received patient this am AAOx3. Pt NPO for Cardiac Cath. Pt off unit to cath left. Pt returned from Cardiac Embedded Hardware Engineer at 1320. Pt AAOx3. Pt's VSS stable. Pt's blood pressure is on lower side at baseline. Pleas Post Cath Flow sheet for documentation.
Pt offered no complaints. Made patient comfortable. Cont to assess patient status.
[2025-01-22] MEDS: ENTRESTO 24 MG/26 MG PO (20:11)
[2025-01-23 02:22] VITALS: BP 88/64
[2025-01-23 02:23] VITALS: BMI 25.9
[2025-01-23 03:44] VITALS: BP 100/62
[2025-01-23 07:35] VITALS: BP 99/58
[2025-01-23 08:13] LABS: Blood Urea Nitrogen 27 mg/dl (9-20); Calcium 8.8 mg/dl (8.4-10.2); Carbon Dioxide 24 mmol/L (22-30); Chloride 102 mmol/L (98-107); Estimated Creatinine Clearance 95 ml/min; Glucose 75 mg/dl (70-99); Potassium 4.4 mmol/L (3.5-5.1); Sodium 137 mmol/L (135-145); eGFR > 60.00
[2025-01-23] MEDS: LASIX 40 MG PO (08:41)
[2025-01-23] MEDS: FARXIGA 10 MG PO (08:41)
[2025-01-23] MEDS: ENTRESTO 24 MG/26 MG 1 TAB PO (08:41)
[2025-01-23] MEDS: VITAMIN B1 100 MG PO (08:41)
[2025-01-23] MEDS: ALDACTONE 12.5 MG PO (08:42)
[2025-01-23] MEDS: TOPROL XL 25 MG PO (08:42)
--- NOTE | 2025-01-23 09:24 | W.PN.CD ---
Today's Communication / Plan
-
He is stable for discharge from a cardiovascular standpoint.
Cardiac meds for discharge: Metoprolol 25 mg daily, valsartan 40 mg twice daily, spironolactone 12.5 mg daily, Jardiance 10 mg daily, Lasix 40 mg p.o. as needed for weight gain of >3 lb overnight or >5 lb in 1 week
BMP in 1 week after discharge
Cardiac rehab referral
We will schedule follow-up with our office. Please also provide contact information for PCPs. He needs to establish care.
Impression / Plan
-
Impression/Plan: 59-year-old man with daily alcohol use (5�6 beers), extremely limited medical contact and thus no documented past medical history admitted with new HFrEF.
Cardiology: Will be [facility]
#Acute HFrEF/CM (type unknown):
-New diagnosis this admission, LVEF 15-20%, global hypokinesis, moderate to severe MR, moderate to severe TR.
-CXR with cardiomegaly and mild CHF; proBNP 10,000.
-RHC/LHC yesterday with no coronary artery disease and LVEDP 10 mmHg
-GDMT as hemodynamics will tolerate:
-Diuretics: Will discharge with as needed Lasix for weight gain.
-Beta blockers: Metoprolol succinate 25 mg PO daily.
-ACEI/ARB/ARNi: Entresto unaffordable. Switch to valsartan 40 mg twice daily
-MRA: Continue spironolactone 12.5 mg daily
-SGLT2i: Dapagliflozin 10 mg PO daily. Will need to switch to Jardiance on admission which is covered by his insurance.
-ICD: Not yet indicated. Re-evaluate LVEF after 12 weeks of GDMT.
-Cardiac rehab recommended
#Abnormal troponin
-Likely nonischemic myocardial injury in the setting of acute heart failure.
-Troponin 0.036 --> 0.039 --> 0.047 --> 0.044.
-Chest pain-free.
- [facility] with no CAD
#Mixed dyslipidemia
-New diagnosis.
-Total cholesterol = 148, LDL = 112, HDL = 23, Triglycerides = 66.
- 10-year ASCVD risk 4.4% which does not warrant statin therapy
#EtOH abuse
-Chronic, recent absention.
-Consumed 5-6 beers every evening for the past 15 years
-Will need ETOH cessation education and assistance prior to d/c.
Subjective/Interval History:
Feels well. Shortness of breath and leg swelling have improved.
DATA:
TTE, 01/19/2025:
SUMMARY
1. Severely dilated left ventricle with severely reduced systolic function and global hypokinesis. LVEF 15-20%.
2. Right ventricle is moderately dilated with reduced systolic function.
3. Biatrial enlargement.
4. Moderate to severe secondary mitral regurgitation.
5. Moderate to severe tricuspid regurgitation with severely elevated PASP (69 mmHg).
6. No prior study available for comparison.
Physical Exam
Vital Signs/Labs
Vital Signs
Temp Pulse Resp BP Pulse Ox
97.1 F 88 17 99/58 96
01/23/25 02:22 01/23/25 08:41 01/23/25 02:22 01/23/25 08:41 01/23/25 02:22
01/22/25 01/23/25 01/24/25
06:59 06:59 06:59
Actual Weight 171 lb 1 oz 170 lb 4.8 oz
01/22/25 07:38
01/23/25 06:37
Magnesium 1.8 mg/dl (1.6-2.3) 01/20/25 05:46
Triglycerides 59 mg/dl (10-149) 01/20/25 05:46
LDL Cholesterol, Calc 108 mg/dl 01/20/25 05:46
VLDL Cholesterol, Calc 11 mg/dl (0-30) 01/20/25 05:46
HDL Cholesterol 20 mg/dl 01/20/25 05:46
01/19/25
10:05
Lby-I-Brxzquxayqz Pept [id number]
Physical Exam
Constitutional: No acute distress and Comfortable
Cardiovascular: Rhythm & rate is regular, Pedal edema is absent, Systolic murmur present and S1S2 is normal
Respiratory: Respiratory effort normal and Lungs clear to auscul.
Neuro/Psych: AO x 3
Other: Cath Site (R wrist and antecubital fossa without swelling, erythema, or induration)
Data Reviewed
-
Date of Service: January 23, 2025
Medical Decision Making: Reviewed Test Results, Test Interpretation and Review of Case with other Provider
EKG: Tracing Personally Visualized and interpreted
Echo: Report Reviewed by me
Labs: Labs Reviewed by me
--- NOTE | 2025-01-23 10:37 | PTOTSP ---
Chart reviewed, spoke with nurse and patient. The patient denies the need for therapy, reporting he is independent with mobility and has remained so after his cardiac cath. Patient denied concerns regarding mobility upon return home and is agreeable
to being discharged from PT. PT will sign off at this time.
[2025-01-23 11:10] VITALS: BP 97/63
--- NOTE | 2025-01-23 11:18 | W.PN.HOSP.TC ---
Today's Communication/Plan
-
DC home
Alcohol cessation highly recommended
outpatient cardiology follow-up
Assessment / Plan
Assessment / Plan
Physical Exam
General: Well Developed, Well Nourished and No Apparent Distress
HEENT: NormoCephalic, Moist mucous membranes and Atraumatic
Respiratory: Clear
Cardiac: S1/S2 and Regular Rhythm; No Murmur or Rub
GI: Soft, Non Tender, Non Distended and Normal Bowel Sounds; No Organomegaly
Rectal: Deferred by Provider
Musculoskeletal: No Clubbing, No Cyanosis and Edema, Left Lower Extremity
Skin: No Rash
Neuro: AO x 3 and Nonfocal/grossly intact
Psych: Calm, flat affect
# Acute new onset HFrEF , unknown duration but likely acute to subacute
Status post aggressive IV diuresis. Lost significant amount of weight
Per cardiology discharge patient on metoprolol, valsartan, Aldactone, Jardiance. Lasix as needed for weight gain
ECHO showed LVEF 15-20%, global hypokinesis, moderate to severe MR, moderate to severe TR, PASP 69 mmHg
R and L heart cath noted.
cardiology following
# Alcohol use disorder
AAOX3
Counseled patient and complete alcohol cessation.
# nonischemic myocardial injury in the setting of acute heart failure
- Peak Trope 0.047
- Continue to trend Trope
- Patient denies chest pain
- s/p cardiac cath. no intervention required.
# Hyponatremia
resolved
# DVT prophylaxis - Lovenox subcu
# CODE STATUS
- Full code
Discussed with cardiology okay for discharge
More than 30 minutes spent in discharge including
Final examination of the patient
Summarizing hospital stay
Instructions for continuing care to all relevant caregivers
Preparation of discharge records, prescriptions, and referral forms
Total time spent (in minutes): 55
Anticipated Discharge: Today
Subjective/Interval History
-
Date of Service: January 23, 2025
Denies any shortness of breath. Walking around in room without any difficulty.
Objective Data
-
Labs:
Laboratory Results
01/23/25
06:37
Sodium 137
Potassium 4.4
Chloride 102
Carbon Dioxide 24
BUN 27 H
Creatinine 0.8
Glucose 75
Calcium 8.8
Vital Signs:
Vital Signs
Temp Pulse Resp BP Pulse Ox
97.6 F 88 16 99/58 97
01/23/25 07:35 01/23/25 08:41 01/23/25 07:35 01/23/25 08:41 01/23/25 08:30
I&O
01/22/25 01/23/25 01/24/25
06:59 06:59 06:59
Intake Total 600 / 600 480 / 480
Output Total 1900 / 1900 1225 / 1225
Balance -1300 / -1300 -745 / -745
--- NOTE | 2025-01-23 11:21 | W.DCSUMMARY ---
Discharge Summary
Discharge Data
Date of Admission: 01/19/25
Date of Discharge: 01/23/25
-
Pending Results: No
Hospital Course
59-year-old male past medical history of alcohol use disorder who is presented with shortness of breath. Symptoms started 1 month ago. Patient was eval by cardiology. Patient was found to be in acute heart failure exacerbation. Patient was on IV
Lasix. Echocardiogram was performed which showed EF of 15 to 20% with global hypokinesis, moderate to severe mitral regurgitation and tricuspid regurgitation. Patient with good urinary output with diuresis. Patient underwent cardiac
catheterization with no severe stenosis and no intervention was required. Goal-directed medical therapy was suggested by cardiology. Patient will be started on valsartan 40 mg twice daily, Aldactone 12-1/2 mg, Toprol 25 mg and Jardiance. Lasix
will be switched to as needed. Patient creatinine was holding. Patient was ambulating without any difficulty. Patient will need close outpatient cardiology follow-up upon discharge. Also counseled on complete alcohol cessation.
Discharge Plan
-
Patient Disposition: Home (Routine Discharge)
Discharge Diagnosis/Procedures: Acute HFrEF/cardiomyopathy
Status post cardiac catheterization
Nonischemic myocardial injury
Alcohol use disorder
Condition: Fair
Diet: 2 Gram Sodium and Restrict fluids to 48 oz
Activity: As tolerated
Blood Work: BMP in 1 week via primary doctor.
Instructions: Alcohol use disorder (DC), *CBC Heart Failure Instructions
Stand Alone Forms: DC Instructions- Cath/EP Lab
Referrals:
[facility] [Outside]
Referral Note: Call to schedule Cardiac Rehab orientation if you become interested in commitment of 3x/week.
The Cardiac Rehab gym is located on the first floor of the [facility].
Shanique Adkins CRNP [Specified Professional Personl, Cardiology] - 03/15/25 10:00 am
NONE,* [Family Provider, Internal Medicine] - in less than 1 week
Prescriptions:
New
spironolactone 25 mg Tablet
12.5 mg PO DAILY 30 Days Qty: 15 0RF
furosemide 40 mg Tablet
40 mg PO DAILY PRN (Reason: Weight gain) Qty: 30 0RF
valsartan 40 mg Tablet
40 mg PO BID Qty: 60 0RF
metoprolol succinate 25 mg Tablet Extended Release 24 Hr
25 mg PO DAILY 30 Days Qty: 30 0RF
Jardiance 10 mg tablet
10 mg PO DAILY 30 Days Qty: 30 0RF
Discharge Orders:
Discharge Patient (As Directed); Ordered 01/23/25
Ordered By: Kit Navarro
Discharge Date and Time
Print Language: YORUBA
--- NOTE | 2025-01-23 11:49 | CM ---
Patient seen bedside.
Patient ss/p cath yesterday.
Plan d/c home today, no needs has transportation.
--- NOTE | 2025-01-24 11:56 | W.HF.CON ---
Heart Failure
- LV Function
Left ventricular function study result: LV Ejection fraction </= 35%
Ejection Fraction Percentage: 15-20
- ARNI
Patient already on ARNI: No
Heart Failure ARNI Contraindication: Patient Refusal
- ACEI/ARB
Patient already on ACEI/ARB: Yes
- Beta Nathan
Patient already on Evidence Based Beta Nathan: Yes
- Mineralocorticord Receptor Antagonist
Patient already on MRA: Yes
- SGLT-2 Inhibitor
Patient already on SGLT-2 Inhibitor: Yes
- NYHA CHF Classification
NYHA CHF Classification Level: Class III - Symptoms w/ min exertion, interferes w/ nml daily activity
- ACC/AHA Stage
ACC/AHA Stage: Stage C: Symptomatic Heart Failure
== END 2025-01-23 14:09 | disposition home or self-care (01) | DRG 287 ==
LOC: 4 EAST ACU 14:14
PROVIDERS: Internal Medicine; Internal Medicine Cardiovascular Disease; Nurse Practitioner; Registered Nurse; ADMITTING PHYSICIAN Internal Medicine; ATTENDING PHYSICIAN Hospitalist; CONSULT PHYSICIAN Student in an Organized Health Care Education/Training Program; EMERGENCY PHYSICIAN Student in an Organized Health Care Education/Training Program
PROC: 4A023N8 Measurement of Cardiac Sampling and Pressure, Bilateral, Percutaneous Approach (ICD-10-PCS; 2025-01-22)
PROC: B2111ZZ Fluoroscopy of Multiple Coronary Arteries using Low Osmolar Contrast (ICD-10-PCS; 2025-01-22)
DX: I50.21 Acute systolic (congestive) heart failure (principal); I5A Non-ischemic myocardial injury (non-traumatic); E87.1 Hypo-osmolality and hyponatremia; I42.8 Other cardiomyopathies; F10.10 Alcohol abuse, uncomplicated; I25.10 Atherosclerotic heart disease of native coronary artery without angina pectoris; E78.2 Mixed hyperlipidemia; Z79.899 Other long term (current) drug therapy
CPT/HCPCS: 71046; 80048; 80053; 80061; 80306; 82248; 83036; 83735; 83880; 84443; 84484; 85025; 85027; 93005; 93306; 93460; 96374; 97162; 97166; 99285; C1769; C1894; Q9967